=== PATIENT | female | born 1960 | race Caucasian/White ===

== ENCOUNTER 2018-01-17 12:20 | Emergency (ER) | payer BC ==
[2018-01-17] MEDS ORDERED: KETOROLAC 30 MG/ML 1 ML VIAL IVP STA (12:59)
[2018-01-17] MEDS ORDERED: MORPHINE SULFATE 4 MG/ML SYRINGE IV STA (12:59)
[2018-01-17] MEDS ORDERED: SODIUM CHLORIDE 0.9% 1,000 ML IV STA ×2 (12:59)
[2018-01-17] MEDS ORDERED: SODIUM CHLORIDE 0.9% 500 ML IV STA (12:59)
[2018-01-17] MEDS ORDERED: ONDANSETRON 4 MG/2 ML VIAL IVP STA (12:59)
[2018-01-17 13:33] LABS: Basophils % (A) 0 %; Eosinophils # (A) 0.1 k/uL (0-0.7); Eosinophils % (A) 1 %; HCT 43.9 % (34.0-46.0); HGB 14.7 gm/dL (11.4-16.0); Lymphocytes % (A) 8 %; MCH 27.5 pg (25.0-35.0); MCHC 33.5 g/dL (31.0-37.0); MCV 82.1 fL (80.0-100.0); Mean Platelet Volume 8.7; Monocytes # (A) 0.3 k/uL (0-1.0); Monocytes % (A) 2 %; Neutrophils # (A) 11.3 k/uL (1.3-7.7); Neutrophils % (A) 88 %; Platelet Count 216 k/uL (150-450); RBC 5.34 m/uL (3.80-5.40); RDW 13.6 % (11.5-15.5); WBC 12.8 k/uL (3.8-10.6)
--- NOTE | 2018-01-17 13:49 | XR ---
EXAMINATION TYPE: XR KUB DATE OF EXAM: 01/17/2018 COMPARISON: NONE HISTORY: RIGHT SIDED ABDOMINAL PAIN TECHNIQUE: One view abdominal series FINDINGS: The osseous structures are intact. The bowel gas pattern is nonspecific. Lung bases are clear. Surg ical clips in the gallbladder fossa noted. Hypertrophic and degenerative change of the spine. Arthrop athy of the hips. IMPRESSION: 1. Nonspecific abdomen.
[2018-01-17 13:59] LABS: Anion Gap 17 mmol/L; Blood Urea Nitrogen 12 mg/dL (7-17); Carbon Dioxide 23 mmol/L (22-30); Chloride 105 mmol/L (98-107); Glucose 208 mg/dL (74-99); Potassium 4.4 mmol/L (3.5-5.1); Sodium 145 mmol/L (137-145)
[2018-01-17 14:00] LABS: ALT 52 U/L (9-52); AST 53 U/L (14-36); Albumin 4.3 g/dL (3.5-5.0); Alkaline Phosphatase 54 U/L (38-126); Amylase 50 U/L (30-110); Calcium 9.8 mg/dL (8.4-10.2); Lipase 104 U/L (23-300); Total Bilirubin 0.5 mg/dL (0.2-1.3); Total Protein 7.1 g/dL (6.3-8.2)
[2018-01-17 14:36] LABS: Appearance,Urine Cloudy (Clear); Bacteria,Urine Rare /hpf; Bilirubin,Urine Negative (Negative); Blood,Urine Large (Negative); Budding Yeast,Urine Rare /hpf; Color,Urine Yellow; Glucose,Urine (UA) 2+ (Negative); Leukocyte Esterase,Urine Negative (Negative); Mucus,Urine Few /hpf; Nitrite,Urine Negative (Negative); PH, Urine 5.5 (5.0-8.0); Protein,Urine 2+ (Negative); RBC,Urine 5 /hpf (0-5); Specific Gravity,Urine 1.023 (1.001-1.035); Squamous Epithelial Cell,Urine 3 /hpf (0-4); Urobilinogen,Urine <2.0 mg/dL (<2.0)
[2018-01-17 14:39] LABS: Ketones,Urine 3+ (Negative)
[2018-01-17 15:12] VITALS: RESP 18
--- NOTE | 2018-01-17 15:34 | ED ---
General Adult HPI - General Chief complaint: Abdominal Pain Stated complaint: rt flank pain Time Seen by Provider: 01/17/18 12:59 Source: patient, RN notes reviewed, old records reviewed Mode of arrival: ambulatory Limitations: no limitations - History of Present Illness Initial comments: This is a 57-year-old female to the ER for evaluation of kidney stone. Patient has no history of kidney stone currently with flank pain and had outpatient CAT scan showing kidney stone. Patient sent to ER for evaluation further treatment. Patient denies significant nausea vomiting currently no recent fevers. - Related Data Home Medications Medication Instructions Recorded Confirmed Fluconazole [Diflucan] 150 mg PO DAILY PRN 01/17/18 01/17/18 Insulin Glargine,Hum.rec.anlog 25 unit SQ DAILY 01/17/18 01/17/18 [Basaglar Kwikpen U-100] Minocycline HCl 100 mg PO DAILY 01/17/18 01/17/18 metFORMIN HCL 1,000 mg PO BID 01/17/18 01/17/18 sitaGLIPtin [Januvia] 100 mg PO DAILY 01/17/18 01/17/18 Previous Rx's Medication Instructions Recorded HYDROcodone/APAP 5-325MG [[place] 1 tab PO Q6HR PRN #10 tab 01/17/18 5-325] Naproxen [Naprosyn] 500 mg PO Q12HR PRN #30 tab 01/17/18 Ondansetron Odt [Zofran ODT] 4 mg PO Q8HR PRN #30 tab 01/17/18 Allergies Allergy/AdvReac Type Severity Reaction Status Date / Time codeine Allergy Nausea & Verified 01/17/18 13:15 Vomiting Review of Systems ROS Statement: Those systems with pertinent positive or pertinent negative responses have been documented in the HPI. ROS Other: All systems not noted in ROS Statement are negative. Past Medical History Past Medical History: Diabetes Mellitus History of Any Multi-Drug Resistant Organisms: None Reported Past Surgical History: Appendectomy, Cholecystectomy Past Psychological History: No Psychological Hx Reported Smoking Status: Former smoker Past Alcohol Use History: None Reported Past Drug Use History: None Reported General Exam Limitations: no limitations General appearance: alert, in no apparent distress Head exam: Present: atraumatic, normocephalic, normal inspection Eye exam: Present: normal appearance, PERRL, EOMI. Absent: scleral icterus, conjunctival injection, periorbital swelling ENT exam: Present: normal exam, mucous membranes moist Neck exam: Present: normal inspection. Absent: tenderness, meningismus, lymphadenopathy Respiratory exam: Present: normal lung sounds bilaterally. Absent: respiratory distress, wheezes, rales, rhonchi, stridor Cardiovascular Exam: Present: regular rate, normal rhythm, normal heart sounds. Absent: systolic murmur, diastolic murmur, rubs, gallop, clicks GI/Abdominal exam: Present: soft, normal bowel sounds. Absent: distended, tenderness, guarding, rebound, rigid Extremities exam: Present: normal inspection, full ROM, normal capillary refill. Absent: tenderness, pedal edema, joint swelling, calf tenderness Back exam: Present: normal inspection Neurological exam: Present: alert, oriented X3, CN II-XII intact Psychiatric exam: Present: normal affect, normal mood Skin exam: Present: warm, dry, intact, normal color. Absent: rash Course Vital Signs 01/17/18 01/17/18 01/17/18 12:25 13:30 15:10 Temperature 98.9 F Pulse Rate 79 71 86 Respiratory 18 96 H 18 Rate Blood Pressure 129/72 144/69 126/56 O2 Sat by Pulse 98 97 98 Oximetry - Reevaluation(s) Reevaluation #1: 01/17/18 15:34 Patient has adequate pain control tolerating oral intake Medical Decision Making - Medical Decision Making 57 female the ER positive left-sided UVJ stone 2 mm will pass without difficulty. Patient can be discharged home - Lab Data Result diagrams: 01/17/18 13:08 01/17/18 13:08 Lab Results 01/17/18 01/17/18 01/17/18 Range/Units 13:08 13:08 14:05 WBC 12.8 H (3.8-10.6) k/uL RBC 5.34 (3.80-5.40) m/uL Hgb 14.7 (11.4-16.0) gm/dL Hct 43.9 (34.0-46.0) % MCV 82.1 (80.0-100.0) fL MCH 27.5 (25.0-35.0) pg MCHC 33.5 (31.0-37.0) g/dL RDW 13.6 (11.5-15.5) % Plt Count 216 (150-450) k/uL Neutrophils % 88 % Lymphocytes % 8 % Monocytes % 2 % Eosinophils % 1 % Basophils % 0 % Neutrophils # 11.3 H (1.3-7.7) k/uL Lymphocytes # 1.0 (1.0-4.8) k/uL Monocytes # 0.3 (0-1.0) k/uL Eosinophils # 0.1 (0-0.7) k/uL Basophils # 0.0 (0-0.2) k/uL Sodium 145 (137-145) mmol/L Potassium 4.4 (3.5-5.1) mmol/L Chloride 105 (98-107) mmol/L Carbon Dioxide 23 (22-30) mmol/L Anion Gap 17 mmol/L BUN 12 (7-17) mg/dL Creatinine 0.80 (0.52-1.04) mg/dL Est GFR (CKD-EPI)AfAm >90 (>60 ml/min/1.73 sqM) Est GFR (CKD-EPI)NonAf 83 (>60 ml/min/1.73 sqM) Glucose 208 H (74-99) mg/dL Calcium 9.8 (8.4-10.2) mg/dL Total Bilirubin 0.5 (0.2-1.3) mg/dL AST 53 H (14-36) U/L ALT 52 (9-52) U/L Alkaline Phosphatase 54 (38-126) U/L Total Protein 7.1 (6.3-8.2) g/dL Albumin 4.3 (3.5-5.0) g/dL Amylase 50 (30-110) U/L Lipase 104 (23-300) U/L Urine Color Yellow Urine Appearance Cloudy H (Clear) Urine pH 5.5 (5.0-8.0) Ur Specific [place] 1.023 (1.001-1.035) Urine Protein 2+ H (Negative) Urine Glucose (UA) 2+ H (Negative) Urine Ketones 3+ H (Negative) Urine Blood Large H (Negative) Urine Nitrite Negative (Negative) Urine Bilirubin Negative (Negative) Urine Urobilinogen <2.0 (<2.0) mg/dL Ur Leukocyte Esterase Negative (Negative) Urine RBC 5 (0-5) /hpf Ur Squamous Epith Cells 3 (0-4) /hpf Urine Bacteria Rare H (None) /hpf Urine Mucus Few H (None) /hpf Urine Yeast (Budding) Rare H (None) /hpf - Radiology Data Radiology results: report reviewed (CT positive for 2 mm kidney stone) Disposition Clinical Impression: Kidney stone on left side Disposition: HOME SELF-CARE Condition: Good Instructions: Kidney Stones (ED) Is patient prescribed a controlled substance at d/c from ED?: Yes Referrals: Nichole Rizvi DO [Primary Care Provider] - 1-2 days
[2018-01-17 15:45] VITALS: BP 127/80; PULSE 88; TEMP 98.4
== END 2018-01-17 15:40 | disposition home or self-care (01) ==
LOC: EC 12:20
DX: N20.0 Calculus of kidney (principal); E11.9 Type 2 diabetes mellitus without complications; Z87.891 Personal history of nicotine dependence; Z79.4 Long term (current) use of insulin; Z88.5 Allergy status to narcotic agent; Z90.49 Acquired absence of other specified parts of digestive tract
CPT/HCPCS: 36415; 80053; 82150; 83690; 85025; 81001; 74018; 99284; 96374; 96375 ×2; 96361 ×2; J2270; J2405; J1885

== ENCOUNTER → 2020-11-15 | Outpatient (CLI) | payer BC ==
[2020-11-15 15:51] LABS: African American GFR (CKD) 109.9 (60.0-200.0); Albumin 4.4 g/dL (3.80-4.90); Albumin/Globulin Ratio 2.44 (1.60-3.17); Anion Gap 7.3 mmol/L (4.00-12.00); BUN/Creat Ratio 21.43 Ratio (12.00-20.00); Carbon Dioxide 27.7 mmol/L (21.6-31.8); Chol/HDL Ratio 3.18; Globulin 1.8 g/dL (1.6-3.3); LDL Cholesterol,Calculated 75.8 mg/dL (0.0-131.0); Non-African American GFR(CKD) 94.8 (60.0-200.0); Potassium 4.5 mmol/L (3.5-5.5); Total Bilirubin 0.5 mg/dL (0.2-1.2); Total Protein 6.2 g/dL (6.2-8.2); VLDL Calculation 22.2 mg/dL (5.00-40.00)
[2020-11-15 17:56] LABS: Hemoglobin A1C 7.1 % (4.0-6.0)
[2020-11-15 23:54] LABS: Urine Creatinine 146.1 mg/dL
== END | disposition home or self-care (01) ==
LOC: LABWHC1 09:36
PROVIDERS: ATTEND Internal Medicine Endocrinology, Diabetes & Metabolism
DX: E11.65 Type 2 diabetes mellitus with hyperglycemia (principal)
CPT/HCPCS: 36415; 80053; 80061; 82043; 82570; 83036; 84443

== ENCOUNTER → 2021-07-25 | Outpatient (CLI) | payer BC ==
[2021-07-25 17:17] LABS: African American GFR (CKD) 109.1 (60.0-200.0); Albumin 4.3 g/dL (3.8-4.9); Albumin/Globulin Ratio 1.65 (1.60-3.17); Anion Gap 11.9 mmol/L (4.00-12.00); BUN/Creat Ratio 15.57 Ratio (12.00-20.00); Blood Urea Nitrogen 10.9 mg/dL (9.0-27.0); Calcium 9.3 mg/dL (8.7-10.3); Carbon Dioxide 24.1 mmol/L (21.6-31.8); Chol/HDL Ratio 2.73 Ratio; Globulin 2.6 g/dL (1.6-3.3); HDL Cholesterol 56.8 mg/dL (40.00-60.00); LDL Cholesterol,Calculated 71.8 mg/dL (0.0-131.0); Non-African American GFR(CKD) 94.2 (60.0-200.0); Potassium 4.1 mmol/L (3.5-5.5); Total Bilirubin 0.4 mg/dL (0.30-1.20); Total Protein 6.9 g/dL (6.2-8.2); VLDL Calculation 26.4 mg/dL (5.00-40.00)
[2021-07-25 22:43] LABS: Microalbumin Creatinine Ratio <30 mg/g Creat (0-30)
== END | disposition home or self-care (01) ==
LOC: LABWHC1 08:51
PROVIDERS: ATTEND Internal Medicine Endocrinology, Diabetes & Metabolism
DX: E11.65 Type 2 diabetes mellitus with hyperglycemia (principal)
CPT/HCPCS: 36415; 80053; 80061; 82043; 82570; 83036; 84443

== ENCOUNTER → 2022-03-27 | Outpatient (CLI) | payer BC ==
[2022-03-27 17:25] LABS: ALT 26 U/L (8-44); AST 23 U/L (13-35); African American GFR (CKD) 111.5 (60.0-200.0); Albumin 4.4 g/dL (3.8-4.9); Alkaline Phosphatase 45 U/L (41-126); BUN/Creat Ratio 19.63 Ratio (12.00-20.00); Blood Urea Nitrogen 12.9 mg/dL (9.0-27.0); Calcium 9.5 mg/dL (8.7-10.3); Carbon Dioxide 24.8 mmol/L (20.0-27.5); Chloride 107 mmol/L (96-109); Chol/HDL Ratio 3.33 Ratio; Globulin 2.3 g/dL (1.6-3.3); Glucose 133 mg/dL (70-110); LDL Cholesterol,Calculated 82.9 mg/dL (0.0-131.0); Non-African American GFR(CKD) 96.2 (60.0-200.0); Potassium 4.6 mmol/L (3.5-5.5); Sodium 143 mmol/L (135-145); Total Protein 6.7 g/dL (6.2-8.2)
[2022-03-27 20:22] LABS: Microalbumin Creatinine Ratio <30 mg/g Creat (0-30)
== END | disposition home or self-care (01) ==
LOC: LABWHC1 09:05
PROVIDERS: ATTEND Internal Medicine Endocrinology, Diabetes & Metabolism
DX: E11.65 Type 2 diabetes mellitus with hyperglycemia (principal)
CPT/HCPCS: 36415; 80053; 80061; 82043; 82570; 83036; 84443

== ENCOUNTER 2022-07-13 07:48 | Day surgery (SDC) | payer BC ==
[2022-07-12 08:48] VITALS: BMI 33.0
[~2022-07-13 07:48] MED LIST: ACETAMINOPHEN TAB 500 MG TAB PO PRN; DEXAMETHASONE SOD PHOSPHATE 4 MG/ML 1 ML VIAL IV ONE; HEPARIN SODIUM,PORCINE/PF 5,000 UNIT/0.5 ML SYRINGE SQ PRN; HYDROmorphone 0.5 MG/0.5 ML SYRINGE IVP PRN; LACTATED RINGERS 1,000 ML IV SCH; LIDOCAINE 1% (10MG/ML) FOR IV START INTRADERMA PRN; MIDAZOLAM 2 MG/2 ML VIAL IV PRN; ONDANSETRON 4 MG/2 ML VIAL IVP ONE
--- NOTE | 2022-07-13 08:23 | P.GSHP ---
History of Present Illness H&P Date: 07/13/22 Chief Complaint: Umbilical hernia 62-year-old female here today for elective repair incarcerated umbilical hernia. Patient with hernia for a few years. Increasing in size. Mild pain at times. Past Medical History Past Medical History: Diabetes Mellitus, Hyperlipidemia History of Any Multi-Drug Resistant Organisms: None Reported Past Surgical History: Appendectomy, Cholecystectomy Past Anesthesia/Blood Transfusion Reactions: No Reported Reaction Smoking Status: Former smoker - Past Family History Mother Family Medical History: Cancer Father Family Medical History: Cancer Brother(s) Family Medical History: Cancer Medications and Allergies Home Medications Medication Instructions Recorded Confirmed Type Insulin Glargine,Hum.rec.anlog 29 unit SQ HS 01/17/18 07/12/22 History [Basaglar Kwikpen U-100] metFORMIN HCL [Glucophage] 1,000 mg PO DAILY 01/17/18 07/12/22 History Cholecalciferol (Vitamin D3) 125 mcg PO DAILY 07/12/22 07/12/22 History [Vitamin D3 (125 MCG = 5,000 IU)] Rosuvastatin [Crestor] 10 mg PO DAILY 07/12/22 07/12/22 History sitaGLIPtin PHOS/metFORMIN HCL 1 tab PO HS 07/12/22 07/12/22 History [Janumet Xr 100-1,000 mg Tablet] Allergies Allergy/AdvReac Type Severity Reaction Status Date / Time codeine Allergy Nausea & Verified 07/12/22 08:34 Vomiting Surgical - Exam Physical exam: General: Well-developed, well-nourished HEENT: Normocephalic, sclerae nonicteric Abdomen: Nontender, nondistended, partially reducible umbilical hernia Extremities: No edema Neuro: Alert and oriented Assessment and Plan (1) Umbilical hernia Narrative/Plan: 62-year-old female with incarcerated umbilical hernia. We'll proceed with open repair with mesh at this time. Risks of bleeding, infection, recurrence, bladder and bowel injury, numbness, nerve injury were discussed with the patient. The patient understands and wishes to proceed. Current Visit: Yes Status: Acute Code(s): K42.9 - UMBILICAL HERNIA WITHOUT OBSTRUCTION OR GANGRENE SNOMED Code(s): 212685136
[2022-07-13 11:05] LABS: Glucose,Whole Blood 104 mg/dL (70-110)
[2022-07-13] MEDS ORDERED: PROPOFOL 10 MG/ML 20 ML VIAL IV ONE (11:40)
[2022-07-13] MEDS ORDERED: SUCCINYLCHOLINE CHLORIDE 200 MG/10 ML VIAL IV ONE (11:40)
[2022-07-13] MEDS ORDERED: ROCURONIUM 10 MG/ML (5 ML VIAL) IV ONE (11:40)
[2022-07-13] MEDS ORDERED: NEOSTIGMINE 1 MG/ML 10 ML VIAL ONE (11:40)
[2022-07-13] MEDS ORDERED: MIDAZOLAM 2 MG/2 ML VIAL ONE (11:40)
[2022-07-13] MEDS ORDERED: LIDOCAINE 2% INJ 20 MG/ML (2 ML VIAL) ONE (11:40)
[2022-07-13] MEDS ORDERED: fentaNYL (PF) 50 MCG/ML 2 ML AMP ONE (11:40)
[2022-07-13] MEDS ORDERED: GLYCOPYRROLATE 0.2 MG/ML 2 ML VIAL ONE (11:40)
[2022-07-13] MEDS ORDERED: BUPIVACAINE (PF) 0.25% 30 ML VIAL SQ ONE (11:45)
[2022-07-13] MEDS ORDERED: ACETAMINOPHEN TAB 325 MG TAB PO SCH (13:00)
[2022-07-13 13:04] VITALS: TEMP 97
--- NOTE | 2022-07-13 13:06 | P.OP ---
Date of Procedure: 07/13/22 Procedure(s) Performed: PREOPERATIVE DIAGNOSIS: Incarcerated umbilical hernia POSTOPERATIVE DIAGNOSIS: Incarcerated umbilical hernia with small incarcerated ventral hernia PROCEDURE: Open repair incarcerated umbilical and ventral hernia with mesh SURGEON: Dr. Hawkins ANESTHESIA: General OPERATIVE PROCEDURE DETAILS: The patient was placed in the operating table in the supine position. A right sided periumbilical incision was made using the scalpel. The subcutaneous tissues were dissected bluntly and with cautery. The hernia sac was identified. The umbilical attachments to the fascia were divided using electrocautery. The hernia sac was partially excised. The hole in the peritoneum was closed using a locking 2-0 Vicryl running stitch. The defect in the fascia measured 1.5 x 2 cm. Superior to the umbilical defect there was a small ventral hernia that was also incarcerated measuring about 7 mm in size. These were incorporated into one fascial defect now measuring 3 x 2 cm. The preperitoneal space was then dissected using blunt dissection and electrocautery. The 6.4 cm ventral ex mesh was placed beneath the fascia and sutured in place using trans-fascial 0 Ethibond sutures. The defect was closed using interrupted 0 Ethibond mattress sutures. The folding edge was sutured down using interrupted 0 Ethibond sutures as well. The subcutaneous tissues were reapproximated using inverted 2-0 & 3-0 Vicryl sutures. The umbilicus was tacked back down to the fascia using a 2-0 Vicryl suture. The skin was closed using 4-0 Monocryl sutures. Skin glue and sterile dressings were then applied. TYPE OF MESH USED: 6.4 cm round ventral ex mesh LOCATION OF MESH: Sub-lay FIXATION: Trans-fascial 0 Ethibond PREOPERATIVE DISCUSSION ON SMOKING CESSASTION: Yes PREOPERATIVE DISCUSSION ON MORBID OBESITY: Yes PREOPERATIVE DISCUSSION ON APPROPRIATE USE OF NARCOTIC USE: Yes PREOPERATIVE EDUCATION: Multi Modal, Smoking Cessation and Weight Loss with BMI over 35. DISPOSITION: Stable to recovery room
[2022-07-13 13:18] VITALS: RESP 16
[2022-07-13 13:35] LABS: Glucose,Whole Blood 123 mg/dL (70-110)
[2022-07-13 14:11] VITALS: BP 150/70; PULSE 58
[2022-07-13] MEDS ORDERED: IBUPROFEN 600 MG TAB PO SCH (16:00)
== END 2022-07-13 14:45 | disposition home or self-care (01) ==
LOC: OR 07:48
PROVIDERS: ATTEND Surgery
DX: K42.0 Umbilical hernia with obstruction, without gangrene (principal); E11.9 Type 2 diabetes mellitus without complications; E78.5 Hyperlipidemia, unspecified; Z90.49 Acquired absence of other specified parts of digestive tract; Z87.891 Personal history of nicotine dependence; Z80.9 Family history of malignant neoplasm, unspecified; Z79.84 Long term (current) use of oral hypoglycemic drugs; Z79.899 Other long term (current) drug therapy; Z88.5 Allergy status to narcotic agent
CPT/HCPCS: 49587; 49561; C1781; J2250; J0330; J1100; J2710; J0690; J2405; J3010; J2704; J1644; J2001; 88302

== ENCOUNTER → 2023-07-08 | Outpatient (CLI) | payer BC ==
[2023-07-08 16:34] LABS: ALT 24 U/L (8-44); AST 25 U/L (13-35); Albumin 4.2 d/dL (3.8-4.9); Albumin/Globulin Ratio 1.75 Ratio (1.60-3.17); Alkaline Phosphatase 51 U/L (41-126); BUN/Creat Ratio 16.29 Ratio (12.00-20.00); Blood Urea Nitrogen 11.4 mg/dL (9.0-27.0); Calcium 9.7 mg/dL (8.7-10.3); Chloride 107 mmol/L (96-109); Chol/HDL Ratio 2.79 Ratio; Globulin 2.4 d/dL (1.6-3.3); Glucose 128 mg/dL (70-110); Potassium 4.8 mmol/L (3.5-5.5); Sodium 144 mmol/L (135-145); Total Bilirubin 0.4 mg/dL (0.3-1.2); Total Protein 6.6 d/dL (6.2-8.2)
[2023-07-08 19:01] LABS: Microalbumin Creatinine Ratio <9 mg/g Cr (0-30)
== END | disposition home or self-care (01) ==
LOC: LABWHC1 09:50
PROVIDERS: ATTEND Internal Medicine Endocrinology, Diabetes & Metabolism
DX: E11.65 Type 2 diabetes mellitus with hyperglycemia (principal)
CPT/HCPCS: 36415; 80053; 80061; 82043; 82570; 83036; 84443

== ENCOUNTER → 2024-01-13 | Outpatient (CLI) | payer BC ==
[2024-01-13 14:34] LABS: Basophils # (A) 0.06 X 10*3/uL (0.00-0.10); Basophils % (A) 0.8 %; HCT 43.7 % (37.2-46.3); HGB 13.7 g/dL (12.0-15.0); Lymphocytes # (A) 2.02 X 10*3/uL (0.90-5.00); Lymphocytes % (A) 26.8 %; MCH 26.8 pg (27.0-32.0); MCHC 31.4 g/dL (32.0-37.0); MCV 85.5 FL (80.0-97.0); Mean Platelet Volume 11.9 FL (9.5-12.2); Monocytes # (A) 0.45 X 10*3/uL (0.20-1.00); NRBC Per 100 WBC 0 X 10*3/uL (0.00-0.01); Neutrophils # (A) 4.68 X 10*3/uL (1.80-7.70); Neutrophils % (A) 62.1 %; Platelet Count 185 X 10*3/uL (140-440); RBC 5.11 X 10*6/uL (4.10-5.20); RDW 14.2 % (11.5-14.5); WBC 7.53 X 10*3/uL (4.50-10.00)
[2024-01-13 15:12] LABS: ALT 28 U/L (8-44); AST 26 U/L (13-35); Albumin 4.3 g/dL (3.8-4.9); Albumin/Globulin Ratio 1.72 Ratio (1.60-3.17); Alkaline Phosphatase 43 U/L (41-126); BUN/Creat Ratio 17.43 Ratio (12.00-20.00); Blood Urea Nitrogen 12.2 mg/dL (9.0-27.0); Calcium 9.5 mg/dL (8.7-10.3); Chloride 94 mmol/L (96-109); Chol/HDL Ratio 2.65 Ratio; Globulin 2.5 g/dL (1.6-3.3); Glucose 154 mg/dL (70-110); Potassium 4.1 mmol/L (3.5-5.5); Sodium 146 mmol/L (135-145); Total Bilirubin 0.5 mg/dL (0.3-1.2); Total Protein 6.8 g/dL (6.2-8.2)
[2024-01-13 19:43] LABS: Microalbumin Creatinine Ratio <5 mg/g Cr (0-30)
== END | disposition home or self-care (01) ==
LOC: LABWHC1 10:07
PROVIDERS: ATTEND Physician Assistant Medical
DX: E11.65 Type 2 diabetes mellitus with hyperglycemia (principal); E78.5 Hyperlipidemia, unspecified; E03.9 Hypothyroidism, unspecified; Z79.899 Other long term (current) drug therapy
CPT/HCPCS: 36415; 80053; 80061; 82043; 82570; 83036; 84443; 85025

== ENCOUNTER → 2024-05-19 | Outpatient (CLI) | payer BC ==
[2024-05-19 17:12] LABS: ALT 33 U/L (8-44); AST 38 U/L (13-35); Albumin 4.2 g/dL (3.8-4.9); Albumin/Globulin Ratio 1.83 Ratio (1.60-3.17); Alkaline Phosphatase 44 U/L (41-126); Blood Urea Nitrogen 10.8 mg/dL (9.0-27.0); Calcium 9.3 mg/dL (8.7-10.3); Carbon Dioxide 25.9 mmol/L (21.6-31.8); Chloride 108 mmol/L (96-109); Chol/HDL Ratio 3.26 Ratio; Globulin 2.3 g/dL (1.6-3.3); Glucose 185 mg/dL (70-110); LDL Cholesterol,Calculated 78.2 mg/dL (0.0-131.0); Potassium 4.3 mmol/L (3.5-5.5); Sodium 144 mmol/L (135-145); Total Bilirubin 0.6 mg/dL (0.3-1.2); Total Protein 6.5 g/dL (6.2-8.2)
[2024-05-19 22:23] LABS: Microalbumin Creatinine Ratio <6 mg/g Cr (0-30)
== END | disposition home or self-care (01) ==
LOC: LABWHC1 09:50
PROVIDERS: ATTEND Internal Medicine Endocrinology, Diabetes & Metabolism
DX: E11.65 Type 2 diabetes mellitus with hyperglycemia (principal)
CPT/HCPCS: 36415; 80053; 80061; 82043; 82570; 83036; 84443

== ENCOUNTER → 2024-08-25 | Outpatient (CLI) | payer BC ==
[2024-08-25 15:50] LABS: ALT 36 U/L (8-44); AST 41 U/L (13-35); Albumin 4.2 g/dL (3.8-4.9); Albumin/Globulin Ratio 1.83 Ratio (1.60-3.17); Alkaline Phosphatase 42 U/L (41-126); BUN/Creat Ratio 15.14 Ratio (12.00-20.00); Blood Urea Nitrogen 10.6 mg/dL (9.0-27.0); Calcium 9.4 mg/dL (8.7-10.3); Carbon Dioxide 27.2 mmol/L (21.6-31.8); Chloride 107 mmol/L (96-109); Chol/HDL Ratio 2.52 Ratio; Globulin 2.3 g/dL (1.6-3.3); Glucose 157 mg/dL (70-110); LDL Cholesterol,Calculated 51.8 mg/dL (0.0-131.0); Potassium 4.6 mmol/L (3.5-5.5); Sodium 143 mmol/L (135-145); Total Bilirubin 0.7 mg/dL (0.3-1.2); Total Protein 6.5 g/dL (6.2-8.2)
== END | disposition home or self-care (01) ==
LOC: LABWHC1 08:35
PROVIDERS: ATTEND Internal Medicine Endocrinology, Diabetes & Metabolism
DX: E11.65 Type 2 diabetes mellitus with hyperglycemia (principal)
CPT/HCPCS: 36415; 80053; 80061; 82043; 82570; 83036; 84443

== ENCOUNTER → 2025-02-26 | Outpatient (CLI) | payer BC ==
--- NOTE | 2025-03-01 08:47 | MM ---
Reason for Exam: Screening (asymptomatic). Last mammogram was performed 1 year(s) and 9 month(s) ago. Patient History: Menarche at age 13. First Full-Term at age 23. Postmenopausal. Patient used Hormonal Contraceptives for 17 years. Maternal aunt had breast cancer at or over age 50. Maternal cousin had breast cancer. Maternal cousin had breast cancer. Maternal cousin had breast cancer. Risk Values: Lillie 5 year model risk: 1.4%. NCI Lifetime model risk: 6.0%. Prior Study Comparison: 05/28/2022 Bilateral Screening Mammogram, [facility] . 05/30/2023 Bilateral Screening Mammogram, [facility] . Tissue Density: There are scattered areas of fibroglandular density. Findings: Analyzed By CAD. Chronic nodularity on both sides. There is no suspicious group of microcalcifications or new suspicious mass in either breast. Overall Assessment: Benign, BI-RAD 2 Management: Screening Mammogram of both breasts in 1 year. Patient should continue monthly self-breast exams. A clinical breast exam by your physician is recommended on an annual basis. This exam should not preclude additional follow-up of suspicious palpable abnormalities. Note on Lillie scores and lifetime risk: 1. A Lillie score greater than 3% is considered moderate risk. If this is the case, consider specialist referral to assess eligibility for a risk reducing agent. 2. If overall lifetime risk for the development of breast cancer is 20% or higher, the patient may qualify for future screening with alternating mammogram and breast MRI. [facility], , 03/01/2025 8:44 AM. Electronically signed and approved by: Shadi Schaeffer M.D. Radiologist
== END | disposition home or self-care (01) ==
LOC: RADMAMWWP 09:32
PROVIDERS: ATTEND Family Medicine
DX: Z12.31 Encounter for screening mammogram for malignant neoplasm of breast (principal); R92.323 Mammographic fibroglandular density, bilateral breasts; N63.10 Unspecified lump in the right breast, unspecified quadrant; N63.20 Unspecified lump in the left breast, unspecified quadrant; Z78.0 Asymptomatic menopausal state; Z92.0 Personal history of contraception; Z80.3 Family history of malignant neoplasm of breast
CPT/HCPCS: 77063; 77067

== ENCOUNTER → 2025-03-26 | Outpatient (CLI) | payer BC ==
[2025-03-26 10:37] LABS: ALT 28 U/L (8-44); AST 37 U/L (13-35); Albumin 4.0 g/dL (3.8-4.9); Albumin/Globulin Ratio 1.67 Ratio (1.60-3.17); Alkaline Phosphatase 41 U/L (41-126); Anion Gap 12.20 mmol/L (4.00-12.00); BUN/Creat Ratio 12.67 Ratio (12.00-20.00); Blood Urea Nitrogen 7.6 mg/dL (9.0-27.0); Calcium 8.6 mg/dL (8.7-10.3); Carbon Dioxide 23.8 mmol/L (21.6-31.8); Chloride 107 mmol/L (96-109); Cholesterol 99.00 mg/dL (0.00-200.00); Globulin 2.4 g/dL (1.6-3.3); Glucose 103 mg/dL (70-110); HDL Cholesterol 48.60 mg/dL (40.00-60.00); LDL Cholesterol,Calculated 27.8 mg/dL (0.0-131.0); Potassium 4.3 mmol/L (3.5-5.5); Sodium 143 mmol/L (135-145); Total Protein 6.4 g/dL (6.2-8.2); Triglycerides 113.00 mg/dL (0.00-149.00); VLDL Calculation 22.60 mg/dL (5.00-40.00)
== END | disposition home or self-care (01) ==
LOC: LABWHC1 07:09
PROVIDERS: ATTEND Internal Medicine Endocrinology, Diabetes & Metabolism
DX: E11.65 Type 2 diabetes mellitus with hyperglycemia (principal)
CPT/HCPCS: 36415; 80053; 80061; 82043; 82570; 83036; 84443